=== PATIENT | male | born 1930 | race Caucasian/White ===

== ENCOUNTER 2016-09-11 18:36 | Emergency (ER) | payer MEDICARE, OTHER ==
[~2016-09-11] VITALS: Ht 157.5 cm; Wt 142.0 kg
[~2016-09-11 18:36] MED LIST: ALBU8.5H3 INH; AMLO2.5T78 PO; ASPI-664 PO; AZIT250T94 PO; LOSA100T7 PO; METF1000 PO; OMEP20CA16 PO; ONDA4TAB35 PO; PANT40TA4 PO; PARO10TA76 PO; TAMS0.4C2 PO; ZOLP5TAB6 PO
[2016-09-11 19:39] VITALS: Ht 157.5 cm; Wt 142.0 kg
[2016-09-11] MEDS ORDERED: SOD CHLORIDE 0.9% 500 ML IV STA (20:51)
--- NOTE | 2016-09-11 21:22 | ERA ---
ER Documentation Chief Complaint Date/Time DATE: 09/11/16 TIME: 21:20 Chief Complaint SENT FROM PMD FOR LOW SODIUM, C/O "PAIN IN BONES" NO C/O OR SOB HPI [employer] use. 85-year-old male sent in by Dr. Ramirez for hyponatremia of unclear etiology. The patient describes multiple complaints including decreased oral intake, generalized malaise, diffuse myalgias. He denies any chest pain, no headache, no vision changes. He states normal urine output. ROS All systems reviewed and are negative except as per history of present illness. Medications Home Meds Active Scripts Aspirin* (Aspirin* EC) 81 Mg Tablet., 81 MG PO DAILY, #30 TAB 2 Refills Prov:CRICKET VILLAVICENCIO 03/05/15 Reported Medications Zolpidem Tartrate* (Zolpidem Tartrate*) 5 Mg Tablet, 5 MG PO QHS Y for INSOMNIA , #30 TAB 01/31/16 Albuterol Sulfate* (Proair HFA*) 8.5 Gm Hfa.aer.ad, 2 PUFF INH Q6H Y for WHEEZING AND SOB, #1 INHALER 01/31/16 Tamsulosin Hcl* (Tamsulosin Hcl*) 0.4 Mg Cap.er.24h, 0.4 MG PO DAILY, CAP 10/19/15 Amlodipine Besylate* (Amlodipine Besylate*) 2.5 Mg Tablet, 2.5 MG PO DAILY 10/19/15 Pantoprazole* (Pantoprazole*) 40 Mg Tablet., 40 MG PO DAILY 10/19/15 Metformin Hcl* (Metformin Hcl*) 1,000 Mg Tablet, 1000 MG PO BID, TAB 02/03/15 Losartan Potassium* (Losartan Potassium*) 100 Mg Tablet, 100 MG PO QAM, TAB 02/03/15 Discontinued Reported Medications Paroxetine Hcl* (Paroxetine*) 10 Mg Tablet, 10 MG PO DAILY 10/19/15 Omeprazole* (Omeprazole*) 20 Mg Capsule., 20 MG PO DAILY 10/19/15 Discontinued Scripts Azithromycin* (Zithromax*) 250 Mg Tablet, 250 MG PO .ARIEL DIRECTED, #6 TAB TAKE 500 MG (2 TABS) THE FIRST DAY THEN 250 MG (1 TAB) DAYS 2-5 Prov:LILIBETH FORD DO 01/31/16 Ondansetron Hcl* (Zofran* ODT) 4 mg -ODT Tab.disper, 4 MG PO Q6 Y for NAUSEA AND /OR VOMITING, #10 TAB Prov:LILIBETH FORDJamil DO 01/31/16 Allergies Allergies: Coded Allergies: No Known Drug Allergy (Verified Allergy, Unknown, 09/11/16) PMhx/Soc History of Surgery: Yes (PROSTATE RESECTION 20YR AGO/CATARACT/HERNIA [id number] AGO) Anesthesia Reaction: No Hx Neurological Disorder: No Hx Respiratory Disorders: Yes Hx Cardiac Disorders: Yes (HTN, high cholesterol) Hx Psychiatric Problems: Yes (DEMENTIA/FORGETFUL,anxiety,insomnia) Hx Miscellaneous Medical Probl: Yes (MULTIPLE FALL,GEN WEAKNESS,diabetes) Hx Alcohol Use: No Hx Substance Use: No Hx Tobacco Use: Yes (quit more than 40 yrs ago) Smoking Status: Former smoker FmHx Family History: diabetes Physical Exam Vitals Vital Signs Date Time Temp Pulse Resp B/P Pulse Ox O2 Delivery O2 Flow Rate FiO2 09/11/16 21:18 98.0 59 18 165/59 99 Room Air 09/11/16 19:39 98.0 63 18 181/78 98 Physical Exam General: Well developed, well nourished, no acute distress Head: Normocephalic, atraumatic. Eyes: Pupils equally reactive, EOM intact ENT: Dry mucous membranes Neck: Supple, no lymphadenopathy Respiratory: Lungs clear bilaterally, no distress Cardiovascular: RRR, no murmurs, rubs, or gallops Abdominal: Soft, non-tender, non-distended, no peritoneal signs : Deferred MSK: No edema, no unilateral swelling, 5/5 strength Neurologic: Alert and oriented, moving all extremities, normal speech, no focal weakness, no cerebellar signs Skin: No rash Psych: Normal mood Result Diagram: 09/11/16210909/11/162109 Results 24 hrs Laboratory Tests Test 09/11/16 21:10 Activated Partial Thromboplast Time 29.9Sec Alanine Aminotransferase (ALT/SGPT) 22IU/L Albumin 4.5g/dl Albumin/Globulin Ratio 1.36 Alkaline Phosphatase 85IU/L Anion Gap 15 Aspartate Amino Transf (AST/SGOT) 23IU/L Basophils # 0.110^3/ul Basophils % 1.1% Blood Urea Nitrogen 10mg/dl Calcium Level 9.2mg/dl Carbon Dioxide Level 23mmol/L Chloride Level 92mmol/L Creatinine 0.82mg/dl Direct Bilirubin 0.00mg/dl Eosinophils # 0.110^3/ul Eosinophils % 1.3% Globulin 3.30g/dl Glucose Level 88mg/dl Hematocrit 37.5% Hemoglobin 13.0g/dl INR International Normalized Ratio 0.93 Indirect Bilirubin 0.2mg/dl Lymphocytes # 1.910^3/ul Lymphocytes % 34.4% Mean Corpuscular Hemoglobin 28.6pg Mean Corpuscular Hemoglobin Concent 34.7g/dl Mean Corpuscular Volume 82.6fl Mean Platelet Volume 8.5fl Monocytes # 0.410^3/ul Monocytes % 7.0% Neutrophils # 3.010^3/ul Neutrophils % 56.0% Nucleated Red Blood Cells # 0.010^3/ul Nucleated Red Blood Cells % 0.0/100WBC Platelet Count 70826^3/UL Potassium Level 3.9mmol/L Prothrombin Time 12.5Sec Prothrombin Time Ratio 1.0 Red Blood Count 4.5410^6/ul Red Cell Distribution Width 12.7% Sodium Level 126mmol/L Total Bilirubin 0.2mg/dl Total Protein 7.8g/dl Urine Bilirubin NEGATIVE Urine Clarity CLEAR Urine Color LT. YELLOW Urine Epithelial Cells OCCASIONAL Urine Glucose NEGATIVE% Urine Hemoglobin 1+ Urine Ketones NEGATIVE Urine Leukocyte Esterase NEGATIVE Urine Microscopic RBC 0-2/HPF Urine Microscopic WBC NONE SEEN/HPF Urine Nitrite NEGATIVE Urine Random Potassium mmol/L Urine Random Sodium mmol/L Urine Specific [place] 1.010 Urine Total Protein NEGATIVE Urine Urobilinogen 0.2 E.U./dL Urine pH 5.5 White Blood Count 5.410^3/ul Current Medications Medications (Trade) Dose Ordered Sig/Solitario Route PRN Reason Start Time Stop Time Status Last Admin Dose Admin Sodium Chloride (NS) 500 ml @ 500 mls/hr Q1H STAT IV 09/11/16 20:51 09/11/16 21:50 DC 09/11/16 21:36 Procedures/MDM EKG, MONITORS, & DIAGNOSTIC IMAGING: EKG: I reviewed and interpreted a 12-lead EKG. Rhythm: Normal sinus rhythm Ectopy: None Intervals: No abnormalities ST segments: No elevations or depressions T waves: No contiguous inversions Chest x-ray: I reviewed and interpreted a 1 view of the chest Mediastinum: No enlargement Cardiac silhouette: No cardiomegaly Airspace: Clear lung vasquez bilaterally without evidence of pneumothorax Bones: No evidence of fracture LAB INTERPRETATION: Sodium of 126 only slightly below baseline of 132-134 MEDICAL DECISION MAKING: Patient presents because of routine blood draw showing hyponatremia. Unclear etiology however the patient appears to have hypovolemic hyponatremia given his evidence of dehydration and poor oral intake. The patient does have a remote history of prostate CA which does raise the concern for possible SIADH. Urine electrolytes, osmolality would be reasonable. Gentle fluid resuscitation given unknown etiology. Depending on sodium level inpatient hospitalization may be necessary. ER COURSE: The patient's sodium is only slightly below baseline. I spoke to Dr. Muniz. We reviewed the case and he feels the patient can be safely managed as an outpatient. I strongly agree. No indication for hospitalization. The patient can be followed up with Dr. Ramirez tomorrow. The patient received a small bolus of saline. I kept the patient and/or family informed of laboratory and diagnostic imaging results throughout the emergency room course. DISPOSITION PLAN: We discussed follow up with the patient's primary care doctor within 24 to 48 hours as needed. We also discussed return to the emergency room for worsening symptoms or worsening condition. Outpatient referral: [None required] Departure Diagnosis: Primary Impression: Hyponatremia Condition: Good ANTWAN JAQUEZ MD Sep 11, 2016 21:22
[2016-09-11 21:47] LABS: ADD SCAN DIFF NO
[2016-09-11 21:51] LABS: BASOPHIL # 0.1 10^3/ul (0.0-0.1); BASOPHILS % 1.1 % (0.0-2.0); EOSINOPHILS # 0.1 10^3/ul (0.0-0.5); EOSINOPHILS % 1.3 % (0.0-7.0); HEMATOCRIT 37.5 % (42.0-52.0); LYMPHOCYTES # 1.9 10^3/ul (0.8-2.9); LYMPHOCYTES % 34.4 % (15.0-51.0); MEAN CORPUSCULAR HEMOGLOBIN 28.6 pg (29.0-33.0); MEAN CORPUSCULAR HGB CONC 34.7 g/dl (32.0-37.0); MEAN CORPUSCULAR VOLUME 82.6 fl (82.0-101.0); MEAN PLATELET VOLUME 8.5 fl (7.4-10.4); MONOCYTE # 0.4 10^3/ul (0.3-0.9); PLATELET COUNT 303 10^3/UL (140-415); RED BLOOD COUNT 4.54 10^6/ul (4.70-6.10); RED CELL DISTRIBUTION WIDTH 12.7 % (11.5-14.5); WHITE BLOOD COUNT 5.4 10^3/ul (4.8-10.8)
[2016-09-11 21:56] LABS: ADD UMIC YES; URINE BILIRUBIN (Dip) NEGATIVE (NEGATIVE); URINE BLOOD (Dip) 1+ (NEGATIVE); URINE COLOR LT. YELLOW (YELLOW); URINE GLUCOSE (Dip) NEGATIVE (NEGATIVE); URINE KETONES (Dip) NEGATIVE (NEGATIVE); URINE LEUKOCYTE ESTERASE (Dip) NEGATIVE (NEGATIVE); URINE NITRITE (Dip) NEGATIVE (NEGATIVE); URINE TOTAL PROTEIN (Dip) NEGATIVE (NEGATIVE); URINE UROBILINOGEN (Dip) 0.2 E.U./dL (0.1-1.0)
[2016-09-11 22:00] LABS: ALBUMIN 4.5 g/dl (3.3-4.9); CHLORIDE 92 mmol/L (97-110); INR 0.93; PROTIME 12.5 Sec (12.2-14.2)
[2016-09-11 22:01] LABS: PARTIAL THROMBOPLASTIN TIME 29.9 Sec (25.0-35.0)
[2016-09-11 22:03] LABS: ALANINE AMINOTRANSFERASE 22 IU/L (13-69); ALBUMIN/GLOBULIN RATIO 1.36; ALKALINE PHOSPHATASE 85 IU/L (42-121); ANION GAP 15 (8-16); ASPARTATE AMINO TRANSFERASE 23 IU/L (15-46); BILIRUBIN,INDIRECT 0.2 mg/dl (0-1.1); BILIRUBIN,TOTAL 0.2 mg/dl (0.2-1.3); BLOOD UREA NITROGEN 10 mg/dl (7-20); CARBON DIOXIDE 23 mmol/L (21-31); CREATININE 0.82 mg/dl (0.61-1.24); TOTAL PROTEIN 7.8 g/dl (6.1-8.1)
[2016-09-11 22:04] LABS: CALCIUM 9.2 mg/dl (8.4-10.2); GLUCOSE 88 mg/dl (70-220)
[2016-09-11 22:05] LABS: POTASSIUM 3.9 mmol/L (3.5-5.1); SODIUM 126 mmol/L (135-144)
[2016-09-11 22:06] LABS: URINE RBCS 0-2 /HPF (0)
--- NOTE | 2016-09-11 22:10 | RADRPT ---
PROCEDURE: XR Chest. CLINICAL INDICATION: Hyponatremia. TECHNIQUE: Portable AP upright view of the chest was obtained. COMPARISON: 10/19/2015 FINDINGS: The cardiomediastinal silhouette is within upper normal limits. The lungs are clear of masses or ac [place] infiltrates, linear left lower lobe scarring is stable. There is no evidence for pleural effusi on, pneumothorax or pulmonary vascular congestion. The osseous structures are intact with no eviden ce for acute abnormality. Calcification of the aorta is again seen. RPTAT:HJJR IMPRESSION: Stable left lower lobe scarring without evidence of intrathoracic mass lesion or change from 016. Physician Diane Date Time Electronically viewed and signed by Physician Diane on 09/11/2016 22:10 /
[2016-09-11 23:04] VITALS: BP 165/62; PULSE 62; RESP 18; TEMP 98.2
== END 2016-09-11 23:05 | disposition home or self-care (01) ==
LOC: E/R 18:36
DX: E87.1 Hypo-osmolality and hyponatremia (principal); I10 Essential (primary) hypertension; E11.9 Type 2 diabetes mellitus without complications; Z79.82 Long term (current) use of aspirin; Z79.84 Long term (current) use of oral hypoglycemic drugs; Z87.891 Personal history of nicotine dependence
CPT/HCPCS: 36415; 71010; 80053; 81001; 82436; 83930; 83935; 84133; 84300; 85025; 85610; 85730; 93005; 99285; J7040; 81003